=== PATIENT | male | born 1990 | race Two or more races ===

== ENCOUNTER → 2019-02-15 | Outpatient (CLI) | payer OTHER ==
[~2019-02-15] MED LIST: HYDR-2549; MOTRIN
== END | disposition home or self-care (01) ==
LOC: LAB 10:33
PROVIDERS: ATTEND Preventive Medicine Preventive Medicine/Occupational Environmental Medicine
DX: Z02.1 Encounter for pre-employment examination (principal)
CPT/HCPCS: 36415; 86706; 86735; 86762; 86765; 86787